=== PATIENT | female | born 1950 | race Caucasian/White ===

== ENCOUNTER 2019-03-19 00:50 | Inpatient (IN) | payer MEDICARE, OTHER ==
[2019-03-19] MEDS ORDERED: SODIUM CHLORIDE 0.9% 500 ML 500 ML IV ONE (01:02)
--- NOTE | 2019-03-19 01:05 | ED ---
General Adult HPI - General Source: patient, family, RN notes reviewed, old records reviewed Mode of arrival: EMS Limitations: no limitations <Tigre Juan - Last Filed: 03/19/19 03:30> <Landen Dickens - Last Filed: 03/20/19 08:40> - General Chief complaint: Fall Stated complaint: Fall-lt hip injury Time Seen by Provider: 03/19/19 00:57 - History of Present Illness Initial comments: 68-year-old female patient with past be on home oxygen presents to ED for chief complaint of mechanical fall. Patient was reportedly preparing a pizza in the oven. Patient reports that she removed the pizza and put on a table, when she turned a car that she suffered a slip and fall landing on her left hip. Patient complains of left hip pain. Patient is a shortened left hip. Denies new trauma to head or neck. Denies any use of blood thinners. Denies any other complaints at this time. Systemic: Pt denies fatigue, fever/chills, rash. Pt denies weakness, night sweats, weight loss. Neuro: Pt denies headache, visual disturbances, syncope or pre-syncope. HEENT: Pt denies ocular discharge or irritation, otalgia, rhinorrhea, pharyngitis or notable lymphadenopathy. Cardiopulmonary: Pt denies chest pain, SOB, heart palpitations, dyspnea on exertion. Abdominal/GI: Pt denies abdominal pain, n/v/d. : Pt denies dysuria, burning w/ urination, frequency/urgency. Denies new onset urinary or bowel incontinence. MSK: Pt denies myalgia, loss of strength or function in extremities. Neuro: Pt denies new onset weakness, paresthesias. (Tigre Juan) - Related Data Home Medications Medication Instructions Recorded Confirmed Fluticasone/Vilanterol [Breo 1 puff INHALATION DAILY 03/19/19 03/19/19 Ellipta 100-25 Mcg Inhaler] Levothyroxine Sodium [Synthroid] 50 mcg PO DAILY 03/19/19 03/19/19 Losartan Potassium 100 mg PO DAILY 03/19/19 03/19/19 Meloxicam [Mobic] 7.5 mg PO DAILY 03/19/19 03/19/19 Simvastatin [Zocor] 20 mg PO DAILY 03/19/19 03/19/19 Venlafaxine HCl ER [Effexor Xr] 150 mg PO DAILY 03/19/19 03/19/19 buPROPion SR [Wellbutrin Sr] 150 mg PO BID 03/19/19 03/19/19 Allergies Allergy/AdvReac Type Severity Reaction Status Date / Time Sulfa (Sulfonamide Allergy Nausea & Verified 03/19/19 08:39 Antibiotics) Vomiting cephalexin [From Keflex] AdvReac HEADACHE Verified 03/19/19 09:06 Review of Systems ROS Other: All systems not noted in ROS Statement are negative. <Tigre Juan - Last Filed: 03/19/19 03:30> ROS Other: All systems not noted in ROS Statement are negative. <ManinderLanden - Last Filed: 03/20/19 08:40> ROS Statement: Those systems with pertinent positive or pertinent negative responses have been documented in the HPI. Past Medical History Past Medical History: COPD, Hyperlipidemia, Hypertension Additional Past Medical History / Comment(s): O2 dependent History of Any Multi-Drug Resistant Organisms: None Reported Past Surgical History: No Surgical Hx Reported Past Psychological History: Depression Smoking Status: Current every day smoker Past Alcohol Use History: None Reported Past Drug Use History: None Reported <Tigre Juan - Last Filed: 03/19/19 03:30> - Past Family History Father Family Medical History: No Reported History Mother Family Medical History: Cancer Additional Family Medical History / Comment(s): Colon cancer <ManinderLanden - Last Filed: 03/20/19 08:40> General Exam Limitations: no limitations <Tigre Juan - Last Filed: 03/19/19 03:30> - General Exam Comments Initial Comments: Constitutional: NAD, AOX3, Pt has pleasant affect. HEENT: NC/AT, trachea midline, neck supple, no lymphadenopathy. Posterior pharyn x non erythematous, without exudates. External ears appear normal, without discharge. Mucous membranes moist. Eyes PERRLA, EOM intact. There is no scleral icterus. No pallor noted. Cardiopulmonary: RRR, no murmurs, rubs or gallops, no JVD noted. Lungs CTAB in anterior and posterior weeks. No peripheral edema. Abdominal exam: Abdomen soft and non-distended. Abdomen non-tender to palpation in all 4 quadrants. Bowel sounds active in LLQ. No hepatosplenomegaly. No ecchymosis Neuro: CN II-XII grossly intact. No nuchal rigidity. No raccon eyes, no alvarez sign, no hemotympanum. No cervical spinal tenderness. MSK: Left leg shortened, mildly externally rotated. Neurovascularly intact. Mildly tender to lateral hip region. No posterior calf tenderness bilaterally, homans sign negative bilaterally. Posterior tibialis and radial pulse +2 bilaterally. Sensation intact in upper and lower extremities. Full active ROM in upper and lower extremities, 5/5 stregnth. (Tigre Juan) Course Vital Signs 03/19/19 03/19/19 03/19/19 00:52 02:25 03:27 Pulse Rate 96 104 H 108 H Respiratory 16 18 16 Rate Blood Pressure 182/97 171/107 150/100 O2 Sat by Pulse 97 97 96 Oximetry Medical Decision Making - Lab Data Result diagrams: 03/19/19 01:15 03/19/19 01:15 - EKG Data -: EKG Interpreted by Me (and Dr. Henderson) <Tigre Juan - Last Filed: 03/19/19 03:30> - Lab Data Result diagrams: 03/19/19 01:15 03/19/19 01:15 <Landen Dickens - Last Filed: 03/20/19 08:40> - Medical Decision Making 68-year-old female patient with past be on home oxygen presents to ED for chief complaint of mechanical fall. Patient was reportedly preparing a pizza in the oven. Patient reports that she removed the pizza and put on a table, when she turned a car that she suffered a slip and fall landing on her left hip. Patient complains of left hip pain. Patient is a shortened left hip. Denies new trauma to head or neck. Denies any use of blood thinners. Denies any other complaints at this time. Patient also displayed mild hypertension likely secondary to pain. Physical exam displayed left leg to be shortened mildly externally rotated. Neurovascularly intact. Chest x-ray is negative. Plain film of left hip and AP pelvis with acute impacted subcapital fracture left femur. Patient be admitted for hip fracture. Dr. Messer accepting physician case is discussed with GAEL Garcia. Patient also be admitted for consultation with Dr. Maki for medical clearance. Patient has a COPD patient on home oxygen. Case discussed and pt seen by Dr. Henderson. (Tigre Juan) I saw this patient in conjunction with the physician purchasing assistant. I performed independent history and physical exam. Agree with case management. (Joey Dickens) - Lab Data Lab Results 03/19/19 03/19/19 Range/Units 01:15 01:15 WBC 14.8 H (3.8-10.6) k/uL RBC 3.98 (3.80-5.40) m/uL Hgb 12.2 (11.4-16.0) gm/dL Hct 36.7 (34.0-46.0) % MCV 92.2 (80.0-100.0) fL MCH 30.7 (25.0-35.0) pg MCHC 33.3 (31.0-37.0) g/dL RDW 12.8 (11.5-15.5) % Plt Count 215 (150-450) k/uL Neutrophils % 87 % Lymphocytes % 8 % Monocytes % 3 % Eosinophils % 1 % Basophils % 0 % Neutrophils # 13.0 H (1.3-7.7) k/uL Lymphocytes # 1.2 (1.0-4.8) k/uL Monocytes # 0.4 (0-1.0) k/uL Eosinophils # 0.1 (0-0.7) k/uL Basophils # 0.0 (0-0.2) k/uL Sodium 138 (137-145) mmol/L Potassium 3.9 (3.5-5.1) mmol/L Chloride 107 (98-107) mmol/L Carbon Dioxide 26 (22-30) mmol/L Anion Gap 5 mmol/L BUN 19 H (7-17) mg/dL Creatinine 0.83 (0.52-1.04) mg/dL Est GFR (CKD-EPI)AfAm 84 (>60 ml/min/1.73 sqM) Est GFR (CKD-EPI)NonAf 73 (>60 ml/min/1.73 sqM) Glucose 99 (74-99) mg/dL Calcium 7.9 L (8.4-10.2) mg/dL Total Bilirubin 0.3 (0.2-1.3) mg/dL AST 25 (14-36) U/L ALT 18 (4-34) U/L Alkaline Phosphatase 100 (38-126) U/L Total Protein 6.2 L (6.3-8.2) g/dL Albumin 3.6 (3.5-5.0) g/dL - EKG Data EKG Comments: Ventricular rate 99, painful 164, QRS 74, QT/QTC 344/441. NSR rhythm, normal EKG . (Tigre Juan) Disposition Is patient prescribed a controlled substance at d/c from ED?: No <Tigre Juan - Last Filed: 03/19/19 03:30> <Landen Dickens - Last Filed: 03/20/19 08:40> Clinical Impression: Fracture of left hip Disposition: ADMITTED IP TO THIS HOSP Condition: Serious
[2019-03-19] MEDS ORDERED: MORPHINE SULFATE 4 MG/ML SYRINGE IV STA (01:18)
[2019-03-19 01:22] LABS: Basophils % (A) 0 %; Eosinophils # (A) 0.1 k/uL (0-0.7); Eosinophils % (A) 1 %; HCT 36.7 % (34.0-46.0); HGB 12.2 gm/dL (11.4-16.0); Lymphocytes # (A) 1.2 k/uL (1.0-4.8); Lymphocytes % (A) 8 %; MCH 30.7 pg (25.0-35.0); MCHC 33.3 g/dL (31.0-37.0); MCV 92.2 fL (80.0-100.0); Monocytes # (A) 0.4 k/uL (0-1.0); Monocytes % (A) 3 %; Neutrophils % (A) 87 %; Platelet Count 215 k/uL (150-450); RBC 3.98 m/uL (3.80-5.40); RDW 12.8 % (11.5-15.5); WBC 14.8 k/uL (3.8-10.6)
[2019-03-19 01:38] LABS: Albumin 3.6 g/dL (3.5-5.0); Calcium 7.9 mg/dL (8.4-10.2); Potassium 3.9 mmol/L (3.5-5.1); Total Bilirubin 0.3 mg/dL (0.2-1.3); Total Protein 6.2 g/dL (6.3-8.2)
--- NOTE | 2019-03-19 01:39 | XR ---
EXAMINATION TYPE: XR Hip LT and AP Pelvis DATE OF EXAM: 03/19/2019 COMPARISON: NONE HISTORY: Fall. Left hip pain TECHNIQUE: Single view FINDINGS: Pelvic ring is intact. There is impacted subcapital fracture left femur. There is displacem ent 2.5 cm. There is no dislocation. IMPRESSION: Acute impacted subcapital fracture left femur.
--- NOTE | 2019-03-19 01:41 | XR ---
EXAMINATION TYPE: XR chest 1V DATE OF EXAM: 03/19/2019 COMPARISON: NONE HISTORY: Left hip pain TECHNIQUE: Single view FINDINGS: There is no heart failure nor confluent pneumonic infiltrate. Costophrenic angles are clear . Thoracic aorta is atheromatous. IMPRESSION: No active cardiopulmonary disease. Normal heart.
[2019-03-19] MEDS ORDERED: HYDROmorphone 0.5 MG/0.5 ML SYRINGE IVP STA (02:19)
[2019-03-19] MEDS ORDERED: CALCIUM GLUCONATE 1 GM in SODIUM CHLORIDE 0.9% 100 ML IVPB ONE ×2 (03:02→03:04)
[2019-03-19] MEDS ORDERED: NALOXONE 0.4 MG/ML 1 ML VIAL IV PRN (03:33)
[2019-03-19] MEDS: SODIUM CHLORIDE 0.9% 1,000 ML IV SCH ×3 (04:58→23:09)
[2019-03-19] MEDS: HYDROmorphone 0.5 MG/0.5 ML SYRINGE IVP PRN ×5 (05:01→23:05)
[2019-03-19] MEDS ORDERED: IPRATROPIUM-ALBUTEROL 3 ML NEB INHALATION PRN (05:55)
[2019-03-19] MEDS ORDERED: cloNIDine HCL 0.2 MG TAB PO PRN (05:57)
--- NOTE | 2019-03-19 06:18 | P.CONS ---
History of Present Illness - Reason for Consult Consult date: 03/19/19 preop clearance and medical management Requesting physician: Tigre Messer - Chief Complaint fall and left hip pain - History of Present Illness 68 year old female with chronic hypoxic respiratory failure secondary to COPD, hypertension patient comes in after sustaining unwitnessed fall at home, its reportedly that she was making pizza, she would use her wheelchair for support while walking and somehow she slipped and fell, could not get up, crawled her way to the living area which took her an hour to do so, pulled her phone and called for help. upon EMS arrival she vomited when she was moved to the ambulance. patient reports severe pain in her left hip, sharp pain, 10/10 in severity non radiating , denies any associated numbness in her LLE. no cuts or brusing , no bleeding. patient denies taking any blood thinners or aspirin. she reports no head injury, no dizziness, no focal neuro deficits, denies irregular heart beat , denies lightheadedness, denies any shortness of breath or chest pain. family reports that she has been falling alot recently over the past year, and this has been getting worse. family tried to make the house safe by removing uneven edges, rugs and loose carpet. however patient was still falling, no report of loss of consciousness. however, patient has been having progressive worsening in her exertional dyspnea, now she would get short of breath with minimal activity like walking from bedroom to the bathroom. no history of c ardiac workup in the past. patient known to have COPD on home oxygen but she does not use her inhalers, she continues to smoke . in the ED, imaging confirmed acute impacted subcapital fracture of left femur. calcium was found to be slightly low and was replaced in the ED. EKG showed normal sinus rhythm . patient admitted to surgery with medicine on consult for medical management and preop clearance . patient on wellbutrin to help her with smoking cessation family reports that her PCP has decreased her Losartan dose to 50 mg (from 100) due to frequent falling, suspecting possible hypotension Review of Systems Pertinent positives as noted in HPI. All other systems were reviewed and are negative Past Medical History Past Medical History: COPD, Hyperlipidemia, Hypertension Additional Past Medical History / Comment(s): O2 dependent History of Any Multi-Drug Resistant Organisms: None Reported Past Surgical History: No Surgical Hx Reported Additional Past Surgical History / Comment(s): Ectopic . Leg operation;no metal implants Past Anesthesia/Blood Transfusion Reactions: No Reported Reaction Additional Past Anesthesia/Blood Transfusion Reaction / Comm: Blood transfusion with ectopic Past Psychological History: Depression Smoking Status: Current every day smoker Past Alcohol Use History: None Reported Past Drug Use History: None Reported - Past Family History Father Family Medical History: No Reported History Mother Family Medical History: Cancer Additional Family Medical History / Comment(s): Colon cancer Medications and Allergies Home Medications Medication Instructions Recorded Confirmed Type Levothyroxine Sodium [Synthroid] 50 mcg PO DAILY 03/19/19 03/19/19 History Losartan Potassium 100 mg PO DAILY 03/19/19 03/19/19 History Meloxicam [Mobic] 7.5 mg PO DAILY 03/19/19 03/19/19 History Simvastatin [Zocor] 20 mg PO HS 03/19/19 03/19/19 History Venlafaxine HCl ER [Effexor Xr] 150 mg PO DAILY 03/19/19 03/19/19 History buPROPion SR [Wellbutrin Sr] 150 mg PO BID 03/19/19 03/19/19 History Allergies Allergy/AdvReac Type Severity Reaction Status Date / Time Sulfa (Sulfonamide Allergy Nausea & Verified 03/19/19 01:00 Antibiotics) Vomiting Physical Exam Vitals: Vital Signs Temp Pulse Pulse Resp BP BP Pulse Ox 03/19/19 04:32 98.0 F 106 H 18 164/104 95 03/19/19 04:15 109 H 16 151/102 96 03/19/19 03:27 108 H 16 150/100 96 03/19/19 02:25 104 H 18 171/107 97 03/19/19 00:52 96 16 182/97 97 Intake and Output 03/18/19 03/18/19 03/19/19 14:59 22:59 06:59 Output Total 350 Balance -350 Output: Urine 350 Other: Weight 60.5 kg Constitutional: No acute distress, conversant, pleasant, looks older than stated age Eyes: Anicteric sclerae, moist conjunctiva, Pupils equal round reactive to light ENMT: NC/AT Oropharynx clear, no erythema, or exudates Neck: Supple, FROM, no masses, or JVD No carotid bruits No thyromegaly Lungs: good breath sounds throughout, no wheezing Clear to percussion Normal respiratory effort, no accessory muscle use Cardiovascular: Heart regular in rate and rhythm, significant systolic murmur over aortic area radiating to the neck, no gallops, or rubs No peripheral edema Abdominal: Soft Nontender, no guarding, rebound or rigidity Abdomen moving with respiration Normoactive bowel sounds No hepatomegaly, No splenomegaly No palpable mass No abdominal wall hernia noted Skin: Normal temperature, tone, texture, turgor No induration No subcutaneous nodules No rash, lesions No ulcers Extremities: noticeable shortening of the left limb with external rotation , No digital cyanosis No clubbing Pedal pulses intact and symmetrical Radial pulses intact and symmetrical No calf tenderness Psychiatric: Alert and oriented to person, place and time Appropriate affect fair judgment Neuro Muscles Strength 5/5 in bialteral upper extremities and right lower extremtiy except for limited exam over left lower extremity due to pain Sensation to light touch grossly present throughout Cranial nerves II-XII grossly intact No focal sensory deficits Lymphatics: no palpable cervical or supraclavicular , or inguinal lymph nodes Results CBC & Chem 7: 03/19/19 01:15 03/19/19 01:15 Labs: Abnormal Lab Results - Last 24 Hours (Table) 03/19/19 03/19/19 Range/Units 01:15 01:15 WBC 14.8 H (3.8-10.6) k/uL Neutrophils # 13.0 H (1.3-7.7) k/uL BUN 19 H (7-17) mg/dL Calcium 7.9 L (8.4-10.2) mg/dL Total Protein 6.2 L (6.3-8.2) g/dL Assessment and Plan Assessment: patient is 68 year old Female, presented with left hip fracture after sustaining a fall unwitnessed. Patient denies any recent history or symptoms of congestive heart failure, mycardial infarction, syncope, arrhythmia, palpitation. Patient does report exertional dyspnea on mild exertion but denies any associated chest pain. Patient denies any past medical history of stroke, CAD, CHF, CKD, or DM. Patient functional status is very limited due to dyspnea with mild exertion , she has COPD and chronic hypoxic respiratory failure. patient unable to do simple house chores or climb stairs, she would get short of breath with walking from her room to the bathroom. Patient labs reviewed overall unremarkable except for slight leukocytosis and mild hypocalcemia which was replaced in the ED. EKG reviewed and showed NSR. Patient is planned to have orthopedic surgery to fix left hip fracture. This is of moderate risk, however, patient report of exertional dyspnea and frequent falls (with no reason) over the past year and found to have significant aortic murmur on exam with no history of any cardiac workup would require to obtain cardiac echocardiogram to evaluate her aortic valve and rule out severe stenosis This has been explained to the patient and her family, all questions answered, patient verbalized understanding and agreement. Plan: acute impacted subcapital fracture of left femur secondary to falling unwitnessed. pain control neurovascular assessment of left lower extremity q2hr DVT PPX per orthopedic recommendations significant murmur over aortic area, with exertional dyspnea and frequent falling rule out severe aortic stenosis obtain echocardiogram Prior to surgery consider cardiology consult if patient has significant valvular disorder chronic hypoxic respiratory failure secondary to COPD currently at baseline and stable continue with supplemental oxygen at 3 LPM patient not compliant with inhalers duoneb PRN duoneb QID hypertension , with elevated blood pressure possibly due to pain hold losartan in anticipation of surgery PRN clonidin for SBP >180 PCP has recently adjusted her losartan dose from 100 to 50 mg daily secondary to frequent falling suspecting hypotension episodes hypocalcemia , mild replaced in the ED depression on effexor hypothyroidism resume synthroid tobacco smoking on welbuterin counseled to quit smoking nicotine replacement therapy offered DVT PPX heparin sc tid CODE STATUS:full code Anticipated length of stay > than [address]: pending clinical course A total of 60 minutes was spent on the care of this complex patient more than 50% of the time was spent in counseling and care coordination. Thank you for allowing us to participate in the care of this patient. Do not hesitate to contact us with questions. Someone can be reached from the [facility] hospitalist group at all hours of the day on Perfect [employer] or at [phone].
[2019-03-19] MEDS: IPRATROPIUM-ALBUTEROL 3 ML NEB INHALATION SCH ×4 (09:00→19:58)
[2019-03-19] MEDS: HEPARIN SODIUM,PORCINE 5,000 UNIT/ML 1 ML VIAL SQ SCH ×3 (09:26→23:05)
[2019-03-19] MEDS: LEVOTHYROXINE 50 MCG TAB PO SCH (09:26)
--- NOTE | 2019-03-19 09:43 | P.HPOR ---
History of Present Illness H&P Date: 03/19/19 Chief Complaint: Left femoral neck fracture Patient is a 68-year-old female who presented to the hospital early this morning after falling at her home. Patient apparently was making a repeat set in her kitchen, she apparently lost her balance and fell directly on the left side. She was able to crawl to the phone, she states that took over an hour. She contacted EMS brought her directly to the hospital. Upon arrival to the hospital, imaging lab tests were done. X-rays demonstrated a left femoral neck fracture. I was contacted by the emergency room staff regarding this, I was able to review the images. Patient was admitted under orthopedic care with plan for surgical intervention. Internal medicine was placed on consult. After being seen by internal medicine, there was a noted aortic murmur. I proceeded with a cardiac consult. Both internal medicine and cardiology will be on for management and clearance for surgery. Patient was evaluated today at bedside, she is on the surgical floor. Her niece was present at bedside. She is resting comfortably at this time, no acute discomfort. She notes most discomfort in the left leg when she attempts to mov e. She denies any other orthopedic complaints at this time. Patient admits that she is falling a lot recently in the last few months. Patient has his history of severe COPD which she is treated for at this time. Review of Systems Constitutional: Reports as per HPI Past Medical History Past Medical History: COPD, Hyperlipidemia, Hypertension Additional Past Medical History / Comment(s): O2 dependent History of Any Multi-Drug Resistant Organisms: None Reported Past Surgical History: No Surgical Hx Reported Additional Past Surgical History / Comment(s): Ectopic . Leg operation;no metal implants Past Anesthesia/Blood Transfusion Reactions: No Reported Reaction Additional Past Anesthesia/Blood Transfusion Reaction / Comment(s): Blood transfusion with ectopic Past Psychological History: Depression Smoking Status: Current every day smoker Past Alcohol Use History: None Reported Past Drug Use History: None Reported - Past Family History Father Family Medical History: No Reported History Mother Family Medical History: Cancer Additional Family Medical History / Comment(s): Colon cancer Medications and Allergies Home Medications Medication Instructions Recorded Confirmed Type Fluticasone/Vilanterol [Breo 1 puff INHALATION DAILY 03/19/19 03/19/19 History Ellipta 100-25 Mcg Inhaler] Levothyroxine Sodium [Synthroid] 50 mcg PO DAILY 03/19/19 03/19/19 History Losartan Potassium 100 mg PO DAILY 03/19/19 03/19/19 History Meloxicam [Mobic] 7.5 mg PO DAILY 03/19/19 03/19/19 History Simvastatin [Zocor] 20 mg PO DAILY 03/19/19 03/19/19 History Venlafaxine HCl ER [Effexor Xr] 150 mg PO DAILY 03/19/19 03/19/19 History buPROPion SR [Wellbutrin Sr] 150 mg PO BID 03/19/19 03/19/19 History Allergies Allergy/AdvReac Type Severity Reaction Status Date / Time Sulfa (Sulfonamide Allergy Nausea & Verified 03/19/19 08:39 Antibiotics) Vomiting cephalexin [From Keflex] AdvReac HEADACHE Verified 03/19/19 09:06 Physical Examination Left lower extremity: No obvious open lesions or sores are present throughout the extremity, no significant areas of erythema or soft tissue swelling Shortening of the leg is noted compared to the right lower extremity No effusion present over the knee Tenderness with palpation surrounding the foot or ankle or knee Logroll maneuver the hip reproduces pain, she is unable to straight leg raise Soft, no tenderness with palpation Plantar flexion, dorsiflexion, EHL, FHL are intact. Sensation to light touch spelled extremities intact, dorsal pedis pulses 2+ Results - Labs Labs: Abnormal Lab Results - Last 24 Hours (Table) 03/19/19 03/19/19 Range/Units 01:15 01:15 WBC 14.8 H (3.8-10.6) k/uL Neutrophils # 13.0 H (1.3-7.7) k/uL BUN 19 H (7-17) mg/dL Calcium 7.9 L (8.4-10.2) mg/dL Total Protein 6.2 L (6.3-8.2) g/dL H & H 03/19/19 Range/Units 01:15 Hgb 12.2 (11.4-16.0) gm/dL Hct 36.7 (34.0-46.0) % Result Diagrams: 03/19/19 01:15 03/19/19 01:15 - Diagnostic results Hip x-ray: report reviewed, image reviewed Assessment and Plan Plan: Imaging: X-rays were reviewed of the pelvis and left hip. Images demonstrated an impacted displaced left femoral neck fracture. There is evidence of left hip osteoarthritis Assessment: 1. Displaced left femoral neck fracture 2. Left hip osteoarthritis 3. Status post fall from standing 4. COPD and other medical comorbidities Plan: I was able to discuss the case with my attending Dr. Butler, we would like to proceed with surgical intervention more specifically a direct anterior left total hip arthroplasty. Risks and benefits of the procedure were discussed the patient and family, this to include but not exclude infection, blood loss, neurovascular injury, development of blood clots, pain is stiffness, need for subsequent surgery. Patient is in good understanding and would like to proceed. Internal medicine and cardiology recommendations Nothing by mouth after midnight Pain control GI and DVT prophylaxis, heparin 5000 units every 8hr Plan for surgery 03/20/2019 Anticipate discharge to subacute rehab when stable Further recommendations to follow Time with Patient: Less than 30
--- NOTE | 2019-03-19 10:25 | P.CRDCN ---
History of Present Illness History of present illness: HISTORY OF PRESENTING ILLNESS This is a pleasant 68-year-old female past medical history significant for COPD, hypertension, dyslipidemia and chronic nicotine dependence. She love es prior history of coronary artery disease, diabetes mellitus or CVA. She does not follow with a barrel raiser for any reason. We have asked to see her in consultation secondary to preoperative evaluation. She states she was warming up a piece of pizza on her microwave when she lost her balance and fell. She denies feeling dizzy, lightheaded, chest pain, short of breath or palpitations. She denies loss of consciousness. X-ray reveals an acute impacted subcapital left femur fracture. She is scheduled to undergo orthopedic surgery tomorrow. She is seen and examined resting comfortably lying flat in bed in no acute distress. She denies symptoms of chest pain, dizziness, shortness of breath or palpitations. DIAGNOSTICS EKG reveals sinus mechanism heart rate of 99. Chest xray negative for an acute cardiopulmonary process. Laboratory reviewed, CBC 14.8, hemoglobin 12.2, platelets 215, sodium 138, potassium 3.9, creatinine 0.83. Current cardiac medications include losartan 100 mg daily and simvastatin 20 mg daily. REVIEW OF SYSTEMS At the time of my exam: CONSTITUTIONAL: Denies fever or chills. CARDIOVASCULAR: Denies chest pain, shortness of breath, orthopnea, PND or palpitations. RESPIRATORY: Denies cough. GASTROINTESTINAL: Denies abdominal pain, diarrhea, constipation, nausea or vomiting. MUSCULOSKELETAL: Complains of discomfort to the left hip and leg. NEUROLOGIC: Denies numbness, tingling or weakness. ENDOCRINE: Denies fatigue, weight change, polydipsia or polyurina. GENITOURINARY: Denies burning, hematuria or urgency with micturation. HEMATOLOGIC: Denies history of anemia or bleeding. PHYSICAL EXAMINATION Blood pressure 165/108 heart rate 113 afebrile and maintaining oxygen saturation on nasal cannula. CONSTITUTIONAL: No apparent distress. HEENT: Head is normocephalic. Pupils are equal, round. Sclerae anicteric. Mucous membranes of the mouth are moist. No JVD. No carotid bruit. CHEST EXAMINATION: Scattered rhonchi and expiratory wheeze. No rales. No chest wall tenderness is noted on palpation or with deep breathing. HEART EXAMINATION: Regular rate and rhythm. S1, S2 heard. Systolic ejection murmur at the left sternal border, no gallops or rub. ABDOMEN: Soft, nontender. Positive bowel sounds. EXTREMITIES: 2+ peripheral pulses, no lower extremity edema and no calf tenderness. NEUROLOGIC EXAMINATION: Patient is awake, alert and oriented x3. 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 Left impacted femur fracture Sinus tachycardia, likely from pain Hypertension Dyslipidemia COPD Chronic nicotine dependence PLAN Echocardiogram has been ordered and will be reviewed. Resume losartan at 100 mg daily for blood pressure control. May require second scheduled medication if blood pressure remains elevated after pain is controlled. Discontinue PRN anti-hypertensives. Clinically she is euvolemic and free of symptoms of angina. There are no acute contraindications to undergo surgery at this time. Recommend cautious fluid administration and optimal blood pressure control intraoperatively. Thank you kindly for this consultation. Nurse Practitioner note has been reviewed, I agree with a documented findings and plan of care. Patient was seen and examined. Past Medical History Past Medical History: COPD, Hyperlipidemia, Hypertension Additional Past Medical History / Comment(s): O2 dependent History of Any Multi-Drug Resistant Organisms: None Reported Past Surgical History: No Surgical Hx Reported Additional Past Surgical History / Comment(s): Ectopic . Leg operation;no metal implants Past Anesthesia/Blood Transfusion Reactions: No Reported Reaction Additional Past Anesthesia/Blood Transfusion Reaction / Comment(s): Blood transfusion with ectopic Past Psychological History: Depression Smoking Status: Current every day smoker Past Alcohol Use History: None Reported Past Drug Use History: None Reported - Past Family History Father Family Medical History: No Reported History Mother Family Medical History: Cancer Additional Family Medical History / Comment(s): Colon cancer Medications and Allergies Home Medications Medication Instructions Recorded Confirmed Type Fluticasone/Vilanterol [Breo 1 puff INHALATION DAILY 03/19/19 03/19/19 History Ellipta 100-25 Mcg Inhaler] Levothyroxine Sodium [Synthroid] 50 mcg PO DAILY 03/19/19 03/19/19 History Losartan Potassium 100 mg PO DAILY 03/19/19 03/19/19 History Meloxicam [Mobic] 7.5 mg PO DAILY 03/19/19 03/19/19 History Simvastatin [Zocor] 20 mg PO DAILY 03/19/19 03/19/19 History Venlafaxine HCl ER [Effexor Xr] 150 mg PO DAILY 03/19/19 03/19/19 History buPROPion SR [Wellbutrin Sr] 150 mg PO BID 03/19/19 03/19/19 History Allergies Allergy/AdvReac Type Severity Reaction Status Date / Time Sulfa (Sulfonamide Allergy Nausea & Verified 03/19/19 08:39 Antibiotics) Vomiting cephalexin [From Keflex] AdvReac HEADACHE Verified 03/19/19 09:06 Physical Exam Vitals: Vital Signs Temp Pulse Pulse Resp BP BP Pulse Ox 03/19/19 07:00 96.7 F L 113 H 16 165/108 99 03/19/19 05:54 20 162/102 03/19/19 04:32 98.0 F 106 H 18 164/104 95 03/19/19 04:15 109 H 16 151/102 96 03/19/19 03:27 108 H 16 150/100 96 03/19/19 02:25 104 H 18 171/107 97 03/19/19 00:52 96 16 182/97 97 Intake and Output 03/18/19 03/19/19 03/19/19 22:59 06:59 14:59 Intake Total 300 Output Total 350 Balance -50 Intake: Intake, IV Titration 300 Amount Calcium Gluconate 1 gm In 100 Sodium Chloride 0.9% 100 ml @ 100 mls/hr IVPB ONCE ONE Rx#:[id number] Sodium Chloride 0.9% 1, 200 000 ml @ 100 mls/hr IV . Q10H [facility] Rx#:[id number] Output: Urine 350 Other: Voiding Method Indwelling Catheter Weight 60.5 kg Results 03/19/19 01:15 03/19/19 01:15 Cardiac Enzymes 03/19/19 Range/Units 01:15 AST 25 (14-36) U/L CBC 03/19/19 Range/Units 01:15 WBC 14.8 H (3.8-10.6) k/uL RBC 3.98 (3.80-5.40) m/uL Hgb 12.2 (11.4-16.0) gm/dL Hct 36.7 (34.0-46.0) % Plt Count 215 (150-450) k/uL Comprehensive Metabolic Panel 03/19/19 Range/Units 01:15 Sodium 138 (137-145) mmol/L Potassium 3.9 (3.5-5.1) mmol/L Chloride 107 (98-107) mmol/L Carbon Dioxide 26 (22-30) mmol/L BUN 19 H (7-17) mg/dL Creatinine 0.83 (0.52-1.04) mg/dL Glucose 99 (74-99) mg/dL Calcium 7.9 L (8.4-10.2) mg/dL AST 25 (14-36) U/L ALT 18 (4-34) U/L Alkaline Phosphatase 100 (38-126) U/L Total Protein 6.2 L (6.3-8.2) g/dL Albumin 3.6 (3.5-5.0) g/dL Current Medications Generic Name Dose Route Start Last Admin Trade Name Freq PRN Reason Stop Dose Admin Albuterol/Ipratropium 3 ml 03/19/19 08:00 03/19/19 09:00 Duoneb 0.5 Mg-3 Mg/3 Ml Soln INHALATION Not Given RT-QID TOMY Albuterol/Ipratropium 3 ml 03/19/19 05:55 Duoneb 0.5 Mg-3 Mg/3 Ml Soln INHALATION RT-Q4H PRN Bronchospasm Atorvastatin Calcium 10 mg 03/19/19 21:00 Lipitor PO HS TOMY Clonidine 0.2 mg 03/19/19 05:57 Catapres PO TID PRN Blood Pressure - High Heparin Sodium (Porcine) 5,000 unit 03/19/19 08:00 03/19/19 09:26 Heparin SQ 5,000 unit Q8HR TOMY Administration Hydromorphone HCl 0.5 mg 03/19/19 03:33 03/19/19 05:01 Dilaudid IVP 0.5 mg Q3HR PRN Administration Moderate Pain Sodium Chloride 1,000 mls @ 100 mls/hr 03/19/19 03:45 03/19/19 04:58 Saline 0.9% IV 100 mls/hr .Q10H TOMY Administration Levothyroxine Sodium 50 mcg 03/19/19 06:30 03/19/19 09:26 Synthroid PO 50 mcg DAILY@0630 TOMY Administration Naloxone HCl 0.2 mg 03/19/19 03:33 Narcan IV Q2M PRN Opioid Reversal Intake and Output 03/18/19 03/19/19 03/19/19 22:59 06:59 14:59 Intake Total 300 Output Total 350 Balance -50 Intake: Intake, IV Titration 300 Amount Calcium Gluconate 1 gm In 100 Sodium Chloride 0.9% 100 ml @ 100 mls/hr IVPB ONCE ONE Rx#:[id number] Sodium Chloride 0.9% 1, 200 000 ml @ 100 mls/hr IV . Q10H [facility] Rx#:[id number] Output: Urine 350 Other: Voiding Method Indwelling Catheter Weight 60.5 kg 03/19/19 01:15 03/19/19 01:15
--- NOTE | 2019-03-19 10:31 | ECHOF ---
Referral Reason:aortic murmur ?stenosis, need clearance for surger MEASUREMENTS -------- HEIGHT: 167.6 cm WEIGHT: 60.3 kg BP: 162/102 RVIDd: 2.5 cm (< 3.3) IVSd: 1.0 cm (0.6 - 1.1) LVIDd: 3.6 cm (3.9 - 5.3) LVPWd: 1.0 cm (0.6 - 1.1) IVSs: 1.6 cm LVIDs: 2.4 cm LVPWs: 1.3 cm LA Diam: 2.2 cm (2.7 - 3.8) LAESV Index (A-L): 18.40 ml/m Ao Diam: 2.7 cm (2.0 - 3.7) AV Cusp: 1.1 cm (1.5 - 2.6) MV EXCURSION: 17.297 mm (> 18.000) MV EF SLOPE: 185 mm/s (70 - 150) EPSS: 0.5 cm AV maxP.76 mmHg AV maxP.76 mmHg AV meanP.47 mmHg FINDINGS -------- Resting tachycardia (HR>100bpm). This was a technically adequate study. The left ventricular size is normal. Left ventricular wall thickness is normal. Overall left vent ricular systolic function is normal with, an EF between 60 - 65 %. The right ventricle is normal in size. Normal LA size by volume 22+/-6 ml/m2. The right atrium is normal in size. Interatrial and interventricular septum intact. There is mild aortic valve sclerosis. There is mild aortic stenosis present. Peak/mean gradient a cross the Aortic Valve is 17.76mmHg / 9.47mmHg. The mitral valve leaflets are mildly thickened. Mild mitral annular calcification present. Mild-t o-moderate mitral regurgitation is present. Mild tricuspid regurgitation present. Right ventricular systolic pressure is normal at < 35 mmHg. The pulmonic valve was not well visualized. The aortic root size is normal. Normal inferior vena cava with normal inspiratory collapse consistent with estimated right atrial pre ssure of 5 mmHg. There is no pericardial effusion. CONCLUSIONS -------- 1. Resting tachycardia (HR>100bpm). 2. This was a technically adequate study. 3. The left ventricular size is normal. 4. Left ventricular wall thickness is normal. 5. Overall left ventricular systolic function is normal with, an EF between 60 - 65 %. 6. The right ventricle is normal in size. 7. Normal LA size by volume 22+/-6 ml/m2. 8. The right atrium is normal in size. 9. Interatrial and interventricular septum intact. 10. There is mild aortic valve sclerosis. 11. There is mild aortic stenosis present. 12. Peak/mean gradient across the Aortic Valve is 17.76mmHg / 9.47mmHg. 13. The mitral valve leaflets are mildly thickened. 14. Mild mitral annular calcification present. 15. Kegy-[id number] mitral regurgitation is present. 16. Mild tricuspid regurgitation present. 17. Right ventricular systolic pressure is normal at < 35 mmHg. 18. The pulmonic valve was not well visualized. 19. The aortic root size is normal. 20. Normal inferior vena cava with normal inspiratory collapse consistent with estimated right atrial pressure of 5 mmHg. 21. There is no pericardial effusion. INFORMATION TECHNOLOGY AUDITOR: STEPHANIE Yanez
--- NOTE | 2019-03-19 12:09 | P.PN ---
Progress Note - Text Progress Note Date: 03/19/19 Patient was seen. Patient reports left hip pain. Pain is 10 out of 10 only with movement. She denies any chest pain, shortness breath or palpitations. No dizziness. Patient is in no acute distress. Acute impacted subcapital fracture of the left femur secondary to fall Murmur Leukocytosis Elevated BUN Chronic hypoxic respiratory failure due to COPD Hypertension Dyslipidemia Patient diagnosed with impacted subcapital fracture of the left femur after fall. Echocardiogram was done which showed EF 60-65% with normal wall motion. There is also mild aortic stenosis, mild to moderate mitral regurgitation and mild tricuspid regurgitation. Losartan has been increased for better blood pres sure control. She is on Lipitor for dyslipidemia and Synthroid for hypothyroidism. Her leukocytosis is likely reactive from the fall. LVEDP was likely due to dehydration for which IVF is being given. Cardiology has evaluated the patient cleared the patient for surgery. She has been placed nothing by mouth after midnight for possible surgery tomorrow.
[2019-03-19 13:02] VITALS: BMI 21.5
[2019-03-19] MEDS: LOSARTAN 50 MG TAB PO SCH (13:53)
[2019-03-19 20:23] LABS: Glucose,Whole Blood 131 mg/dL (75-99)
[2019-03-19] MEDS: HYDROcodone/APAP 5-325MG 1 EACH TAB PO PRN (20:25)
[2019-03-19] MEDS: ATORVASTATIN 10 MG TAB PO SCH (20:25)
[2019-03-19] MEDS ORDERED: LIDOCAINE 1% 20 ML VIAL (10MG/ML) FOR IV START INTRADERMA PRN (21:33)
[2019-03-19] MEDS ORDERED: fentaNYL (PF) 50 MCG/ML 2 ML AMP IV PRN (21:33)
[2019-03-19] MEDS: LACTATED RINGERS 1,000 ML IV SCH (23:04)
[2019-03-19] MEDS: ONDANSETRON 4 MG/2 ML VIAL IVP ONE (23:05)
[2019-03-19] MEDS: DEXAMETHASONE SOD PHOSPHATE 10 MG/ML 1 ML VIAL IV ONE (23:12)
[2019-03-20] MEDS: HYDROcodone/APAP 5-325MG 1 EACH TAB PO PRN (02:52)
[2019-03-20] MEDS: HYDROmorphone 0.5 MG/0.5 ML SYRINGE IVP PRN ×3 (02:53→12:10)
[2019-03-20] MEDS: LEVOTHYROXINE 50 MCG TAB PO SCH (05:06)
[2019-03-20] MEDS: SODIUM CHLORIDE 0.9% 1,000 ML IV SCH ×2 (08:43→20:58)
[2019-03-20] MEDS: HEPARIN SODIUM,PORCINE 5,000 UNIT/ML 1 ML VIAL SQ SCH (08:51)
[2019-03-20 08:54] LABS: HCT 35.1 % (34.0-46.0); HGB 11.2 gm/dL (11.4-16.0); MCHC 31.9 g/dL (31.0-37.0); MCV 93.8 fL (80.0-100.0); Mean Platelet Volume 7.9; Platelet Count 175 k/uL (150-450); RBC 3.74 m/uL (3.80-5.40); WBC 11.3 k/uL (3.8-10.6)
[2019-03-20 09:16] LABS: Calcium 8.4 mg/dL (8.4-10.2); Potassium 4.7 mmol/L (3.5-5.1)
[2019-03-20] MEDS: LOSARTAN 50 MG TAB PO SCH (09:32)
[2019-03-20] MEDS: IPRATROPIUM-ALBUTEROL 3 ML NEB INHALATION SCH ×4 (09:50→20:37)
--- NOTE | 2019-03-20 12:20 | P.PN ---
Subjective Progress Note Date: 03/20/19 Principal diagnosis: Left hip pain Patient was seen and examined. No acute events overnight. Patient reports well-controlled pain with current medication. Patient states that she is not moving she is in no pain. Daughter is concerned about patient undergoing anesthesia given that she is on 3 L home O2. Patient denies any chest pain, shortness of breath or palpitations. No nausea or vomiting. No fever or chills. Objective - Vital Signs Vital signs: Vital Signs Temp 98.2 F 03/20/19 07:47 Pulse 100 03/20/19 10:42 Resp 17 03/20/19 07:47 BP 137/73 03/20/19 07:47 Pulse Ox 92 L 03/20/19 10:28 Intake & Output 03/19/19 03/20/19 03/20/19 18:59 06:59 18:59 Intake Total 1100 Output Total 1425 Balance 1100 -1425 Weight 60.5 kg Intake: Intake, IV Titration 800 Amount Sodium Chloride 0.9% 1, 800 000 ml @ 100 mls/hr IV . Q10H [facility] Rx#:[id number] Oral 300 Output: Urine 1425 Other: Voiding Method Indwelling Catheter Indwelling Catheter Indwelling Catheter # Voids 2 - Exam General: [non toxic], [no distress], [appears at stated age] Derm: [warm], [dry] Head: [atraumatic], [normocephalic], [symmetric] Eyes: [EOMI], [no lid lag], [anicteric sclera] Mouth: [no lip lesion], [mucus membranes moist] Cardiovascular: [S1S2 reg], [holosystolic murmur], [positive DP pulse bilateral], Lungs: [Decreased breath sounds bilateral], [no rhonchi, no rales] , [no accessory muscle use] Abdominal: [soft], [ nontender to palpation], [no guarding], [no appreciable organomegaly] Ext: [no gross muscle atrophy], [no edema], [no contractures], [limited range of motion of the left hip due to discomfort tenderness to palpation over the lateral hip, no erythema or bruising] Neuro: [no focal neuro deficits] Psych: [Alert], [oriented], [appropriate affect] - Labs CBC & Chem 7: 03/20/19 08:30 03/20/19 08:30 Labs: Abnormal Lab Results - Last 24 Hours (Table) 03/19/19 03/20/19 03/20/19 Range/Units 20:12 08:30 08:30 WBC 11.3 H (3.8-10.6) k/uL RBC 3.74 L (3.80-5.40) m/uL Hgb 11.2 L (11.4-16.0) gm/dL Carbon Dioxide 31 H (22-30) mmol/L Glucose 140 H (74-99) mg/dL POC Glucose (mg/dL) 131 H (75-99) mg/dL Assessment and Plan Assessment: Acute impacted subcapital fracture of the left femur secondary to fall Murmur Leukocytosis Chronic hypoxic respiratory failure due to COPD on 3 L home O2 Hypertension Dyslipidemia Patient diagnosed with impacted subcapital fracture of the left femur after fall. Echocardiogram was done which showed EF 60-65% with normal wall motion. There is also mild aortic stenosis, mild to moderate mitral regurgitation and mild tricuspid regurgitation. Losartan has been increased for better blood pressure control, her BP is in acceptable range. She is on Lipitor for dyslipidemia and Synthroid for hypothyroidism. Her leukocytosis is likely r eactive from the fall, which is trending down today. Hemoglobin slightly decreased from 12.2-11.2. Cardiology has evaluated the patient cleared the patient for surgery. Plans for surgery today. Discussed with daughter, advised to discuss risks of anesthesia with anesthesiologist and orthopedic surgeon prior to surgery given that patient is on 3 L home O2. She is pending clinical improvement. Will likely need subacute rehab on discharge.
[2019-03-20] MEDS ORDERED: IV FLUID CONTINUATION 1,000 ML IV ONE (13:36)
[2019-03-20] MEDS: ONDANSETRON 4 MG/2 ML VIAL IVP ONE (13:49)
[2019-03-20] MEDS: DEXAMETHASONE SOD PHOSPHATE 10 MG/ML 1 ML VIAL IV ONE (13:49)
[2019-03-20] MEDS ORDERED: ROPIVACAINE 246.25 MG, EPINEPHrine 0.5 MG, KETOROLAC 30 MG, cloNIDine HCL/PF 80 MCG, WA... MISCELLANE ONE ×5 (14:17)
[2019-03-20] MEDS ORDERED: TRANEXAMIC ACID 1,000 MG in SODIUM CHLORIDE 0.9% 100 ML IVPB PRN (14:17)
[2019-03-20] MEDS ORDERED: PROPOFOL 10 MG/ML 20 ML VIAL IV ONE (14:41)
[2019-03-20] MEDS ORDERED: MIDAZOLAM 2 MG/2 ML VIAL ONE (14:41)
[2019-03-20] MEDS ORDERED: SODIUM CHLORIDE 0.9% 100 ML BAG ONE (14:41)
[2019-03-20] MEDS ORDERED: TRANEXAMIC ACID 1,000 MG/10 ML VIAL ONE (14:41)
[2019-03-20] MEDS ORDERED: LACTATED RINGERS 1,000 ML IV ONE (16:02)
[2019-03-20] MEDS ORDERED: HYDROmorphone 0.5 MG/0.5 ML SYRINGE IVP PRN ×2 (16:21)
[2019-03-20] MEDS ORDERED: ONDANSETRON 4 MG/2 ML VIAL IVP PRN (16:21)
[2019-03-20] MEDS ORDERED: HYDROcodone/APAP 5-325MG 1 EACH TAB PO PRN (16:21)
[2019-03-20] MEDS ORDERED: NALOXONE 0.4 MG/ML 1 ML VIAL IV PRN (16:21)
--- NOTE | 2019-03-20 16:21 | P.OP ---
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 Depuy Corail KA size 13 standard collar press-fit femoral stem 2. Depuy pinnacle 54 mm press-fit multi hole acetabular shell 3. Depuy pinnacle acetabular polyethylene liner neutral 36 mm ID 54 mm OD 4. Biolox delta ceramic femoral head +1.5 36 mm Anesthesia: local, spinal Surgeon: Danial Butler Functional Tester Typewriters #1: Luis Garcia Estimated Blood Loss (ml): 100 Pathology: other (Femoral head) Condition: stable Disposition: PACU Indications for Procedure: 68-year-old patient seen with a displaced left hip femoral neck fracture. She did have some concomitant acetabular osteoarthritis. I recommended direct anter ior left total hip arthroplasty. Patient was agreeable. Consent was obtained. Operative Findings: See description of procedure Description of Procedure: The patient was taken to the operative suite. Patient underwent a spinal anesthetic by the department of anesthesia. Patient was then transferred to the Mccrory table. Patient was given preoperative IV antibiotics and TXA. Both lower extremities were placed in standard leg spars. The hip was then prepped and draped in the normal sterile orthopedic fashion. A standard anterior incision w as made beginning 3 cm lateral and 1 cm distal to the ASIS extending 10 cm. Dissection was then carried down through the subcutaneous soft tissues down to the fascia overlying the tensor fascia annie. An incision was now made through the fascia. Careful dissection was taken down exposing the tensor fascia annie muscle. A Cobra retractor was now placed along the medial femoral neck and a second one along the lateral femoral neck. The venous circumflex vessels were now identified, cauterized and clipped. We identified the anterior hip capsule. An incision was made through the hip capsule along the lateral border. I performed a partial anterior capsulectomy. I immediately visualized the fractured femoral neck with complete displacement of the femoral head. The femoral head was now removed without difficulty. I used a sagittal saw to remove some residual femoral neck. The extremity was now rotated to 45 degrees of external rotation. It was locked in position. Residual labrum was now debrided out. We noted some osteoarthritis of the acetabulum. Serial reaming was performed of the acetabulum while Jose M MAYO assisted holding an anterior retractor for exposure. Once we reached the appropriate size and a trial was position and fit nicely. The appropriate size was now chosen opened and made available. It was introduced into the acetabulum without difficulty. The C-arm/fluoroscopy was now brought into the operative field. We made sure we had a true AP pelvic view. We now under direct C-arm/fluoroscopy introduced into the acetabular component with appropriate version and inclination. I held the cup in appropriate position well Jose M MAYO used a mallet to seat the acetabular component. I noted the component now to be well seated and stable. Acetabular cup introduce her was removed. The C-arm was pulled back. An appropriate liner was introduced and clicked into position. It was felt to be stable. At this point retractors were removed. The extremity was now placed into 120 external rotation with no traction. The leg was now dropped to the ground and adducted. Appropriate retractors were now positioned along the proximal femur. We also placed our femoral look into position. Additional capsular releasing was performed to gain access to the proximal femur. We now used a box osteotome. A canal finder was now utilized. Serial broaching was now performed with the assistance of Jose M MAYO tapping the broaches down with a mallet while held the broach in appropriate rotation and position. This was done until we reached the appropriate size with good overall rotational stability. Appropriate calcar planing was performed. A trial head/neck was placed into position. The hip was now reduced. C-arm was brought to the operative field. An AP pelvis was obtained to ascertain appropriate leg lengths. They seem to be adequately aligned. The trial components and well- positioned. The C-arm/fluoroscopy was pulled back. Retractors were repositioned and the hip was dislocated. The leg was again taken down to the ground and adducted. Appropriate retractors were repositioned as well as the femoral hook. All trial components were removed. The femoral implant was opened along with the femoral head. The femoral implant was introduced on the appropriate handle into our pre-broached area. I held the component position w rebecca AMYO used a mallet to seat the femoral component. The femoral component was now noted to be well seated and stable.. The femoral head was introduced with good positioning and fixation noted. Retractors were now removed. The hip was now reduced. There appeared be good positioning of the hip confirmed on intraoperative fluoroscopy. Spot films were obtained to document this. A second gram of TXA was given. The deep and superficial soft tissues were infiltrated with local analgesic. Bipolar cautery had been utilized intermittently through the procedure for hemostasis. The wound was irrigated copiously with pulse lavage mechanical irrigation. The fascia was repaired with Vicryl suture. The subcutaneous soft tissues were repaired in layers with Vicryl suture. The skin was approximated with pernio/Dermabond. Sterile dressings were applied. Patient was then awakened, transferred to a bed and taken to recovery in stable condition. Jose M MAYO assisted with the co mplex procedure.
[2019-03-20] MEDS: LACTATED RINGERS 1,000 ML IV SCH ×2 (18:39→20:58)
[2019-03-20] MEDS: SENNOSIDES-DOCUSATE SODIUM 1 EACH TAB PO SCH (20:04)
[2019-03-20] MEDS: ATORVASTATIN 10 MG TAB PO SCH (20:04)
[2019-03-21] MEDS: ENOXAPARIN 40 MG/0.4 ML SYRINGE SQ SCH (02:27)
[2019-03-21] MEDS: HYDROcodone/APAP 5-325MG 1 EACH TAB PO PRN ×3 (05:07→16:24)
[2019-03-21] MEDS: LEVOTHYROXINE 50 MCG TAB PO SCH (05:07)
[2019-03-21] MEDS: SODIUM CHLORIDE 0.9% 1,000 ML IV SCH ×2 (05:24→15:44)
[2019-03-21] MEDS: LACTATED RINGERS 1,000 ML IV SCH ×3 (06:06→21:01)
[2019-03-21 07:04] LABS: Basophils % (A) 0 %; Eosinophils % (A) 0 %; HCT 30.6 % (34.0-46.0); HGB 9.8 gm/dL (11.4-16.0); Lymphocytes # (A) 1.4 k/uL (1.0-4.8); Lymphocytes % (A) 10 %; MCH 29.6 pg (25.0-35.0); MCHC 31.9 g/dL (31.0-37.0); MCV 92.8 fL (80.0-100.0); Mean Platelet Volume 8.1; Monocytes % (A) 7 %; Neutrophils # (A) 11.2 k/uL (1.3-7.7); Neutrophils % (A) 81 %; Platelet Count 179 k/uL (150-450); RDW 13.1 % (11.5-15.5); WBC 13.9 k/uL (3.8-10.6)
[2019-03-21] MEDS: IPRATROPIUM-ALBUTEROL 3 ML NEB INHALATION SCH ×4 (07:33→20:57)
[2019-03-21] MEDS: LOSARTAN 50 MG TAB PO SCH (09:42)
[2019-03-21] MEDS: FAMOTIDINE 20 MG TAB PO SCH (09:42)
--- NOTE | 2019-03-21 10:29 | XR ---
Limited left hip HISTORY: Anterior hip replacement Single frontal view of the left hip from intraoperative C-arm documents the procedure
--- NOTE | 2019-03-21 10:32 | FL ---
Fluoroscopy HISTORY: Anterior hip replacement 11 seconds fluoroscopy time supplied to the referring clinician. 1 intraoperative C-arm images docum ent the procedure. See dictated report from orthopedic surgery.
--- NOTE | 2019-03-21 11:38 | P.PN ---
Subjective Progress Note Date: 03/21/19 Principal diagnosis: Left hip pain Patient was seen and examined. No acute events overnight. Patient reports well-controlled pain with current medication. Patient states that she is not moving she is in no pain. She underwent direct anterior left total hip arthroplasty yesterday. Patient denies any chest pain, shortness of breath or palpitations. No nausea or vomiting. No fever or chills. Patient has been urinating since her surgery. She has not had a bowel movement since surgery but is passing gas. Objective - Vital Signs Vital signs: Vital Signs Temp 98.2 F 03/21/19 07:00 Pulse 104 H 03/21/19 07:45 Resp 16 03/21/19 07:00 BP 177/80 03/21/19 07:00 Pulse Ox 94 L 03/21/19 07:00 Intake & Output 03/20/19 03/21/19 03/21/19 18:59 06:59 18:59 Intake Total 1250 Output Total 540 2600 Balance 710 -2600 Intake: IV 1250 Output: Urine 440 2600 Uretheral (Best) 240 500 Estimated Blood Loss 100 Other: Voiding Method Indwelling Catheter Indwelling Catheter - Exam General: [non toxic], [no distress], [appears at stated age] Derm: [warm], [dry] Head: [atraumatic], [normocephalic], [symmetric] Eyes: [EOMI], [no lid lag], [anicteric sclera] Mouth: [no lip lesion], [mucus membranes moist] Cardiovascular: [S1S2 reg], [holosystolic murmur], [positive DP pulse bilater al], Lungs: [Decreased breath sounds bilateral], [no rhonchi, no rales] , [no accessory muscle use] Abdominal: [soft], [ nontender to palpation], [no guarding], [no appreciable organomegaly] Ext: [no gross muscle atrophy], [no edema], [no contractures], [left hip lateral dressing clean dry and intact] Neuro: [no focal neuro deficits] Psych: [Alert], [oriented], [appropriate affect] - Labs CBC & Chem 7: 03/21/19 06:21 03/20/19 08:30 Labs: Abnormal Lab Results - Last 24 Hours (Table) 03/21/19 Range/Units 06:21 WBC 13.9 H (3.8-10.6) k/uL RBC 3.30 L (3.80-5.40) m/uL Hgb 9.8 L (11.4-16.0) gm/dL Hct 30.6 L (34.0-46.0) % Neutrophils # 11.2 H (1.3-7.7) k/uL Assessment and Plan Assessment: Acute impacted subcapital fracture of the left femur secondary to fall status post left total hip arthroplasty POD 1 Murmur Leukocytosis Anemia likely due to acute blood loss Chronic hypoxic respiratory failure due to COPD on 3 L home O2 Hypertension Dyslipidemia As seen on pelvic x-ray. POD 1 left total hip arthroplasty. Plans: Management as per orthopedic surgery. PT and OT on board. As seen on echocardiogram. Plans: Continue to monitor. Follow cardiology consultation. Leukocytosis of 13.9. Likely reactive. No signs of infection. Patient afebrile. Plans: Continue to monitor. Hemoglobin 9.8. Likely due to acute blood loss from surgery. Plans: Repeat CBC tomorrow morning. Transfuse if hemoglobin less than 7. Chest x-ray negative. Plans: Patient is at baseline 3 L home O2. BP 177/80. Plans: Continue losartan and metoprolol. Monitor vitals, adjust medications as necessary. Plans: Continue Lipitor. [POD 1 left total hip arthroplasty. Continue working with PT. Orthopedic surgery on board. Likely DC in 1-2 days.]
[2019-03-21] MEDS: METOPROLOL TARTRATE 12.5 MG TAB PO SCH ×2 (12:29→20:39)
--- NOTE | 2019-03-21 15:18 | P.PN ---
Subjective Progress Note Date: 03/21/19 Principal diagnosis: Status post direct anterior left total hip arthroplasty Patient evaluated at bedside, she is resting comfortably. Her pain is controlled. She is ambulating the halls with therapy today. She is utilizing her walker. She denies any chest pain or shortness of breath at this time. Objective - Vital Signs Vital signs: Vital Signs Temp 97.5 F L 03/21/19 14:32 Pulse 91 03/21/19 14:32 Resp 16 03/21/19 14:32 BP 148/82 03/21/19 14:32 Pulse Ox 95 03/21/19 14:32 Intake & Output 03/20/19 03/21/19 03/21/19 18:59 06:59 18:59 Intake Total 1250 Output Total 540 2600 Balance 710 -2600 Intake: IV 1250 Output: Urine 440 2600 Uretheral (Best) 240 500 Estimated Blood Loss 100 Other: Voiding Method Indwelling Catheter Indwelling Catheter Bedside Commode # Voids 2 - Exam Left lower extremity: Incision is clean, dry, and intact. The [exofin fusion tape] is in good condition. [There is minimal soft tissue swelling and ecchymosis surrounding the medial and lateral aspects of the incision.] Calf is soft, no tenderness with palpation. Plantar flexion, dorsiflexion, EHL, FHL are intact. Sensory exam to light touch throughout the extremity is intact, [dorsal pedis pulses 2+.] - Labs CBC & Chem 7: 03/21/19 06:21 03/20/19 08:30 Labs: Abnormal Lab Results - Last 24 Hours (Table) 03/21/19 Range/Units 06:21 WBC 13.9 H (3.8-10.6) k/uL RBC 3.30 L (3.80-5.40) m/uL Hgb 9.8 L (11.4-16.0) gm/dL Hct 30.6 L (34.0-46.0) % Neutrophils # 11.2 H (1.3-7.7) k/uL Assessment and Plan Plan: Assessment: Postoperative day #1 status post direct anterior left total hip arthroplasty Plan: Pain control, continue oral medication GI and DVT prophylaxis, continue current medication Continue work with physical therapy Medical recommendations Anticipate discharge to rehab on Saturday Time with Patient: Less than 30
--- NOTE | 2019-03-21 15:54 | P.PN ---
Subjective Progress Note Date: 03/21/19 This is a pleasant 68-year-old female past medical history significant for COPD, hypertension, dyslipidemia and chronic nicotine dependence. She denies prior history of coronary artery disease, diabetes mellitus or CVA. She does not follow with a lens matcher for any reason. We have asked to see her in consultation secondary to preoperative evaluation. She states she was warming up a piece of pizza on her microwave when she lost her balance and fell. She denies feeling dizzy, lightheaded, chest pain, short of breath or palpitations. She denies loss of consciousness. X-ray reveals an acute impacted subcapital left femur fracture. She is scheduled to undergo orthopedic surgery tomorrow. She is seen and examined resting comfortably lying flat in bed in no acute distress. She denies symptoms of chest pain, dizziness, shortness of breath or palpitations. DIAGNOSTICS EKG reveals sinus mechanism heart rate of 99. Chest xray negative for an acute cardiopulmonary process. Laboratory reviewed, CBC 14.8, hemoglobin 12.2, platelets 215, sodium 138, potassium 3.9, creatinine 0.83. Current cardiac medications include losartan 100 mg daily and simvastatin 20 mg daily. 03/21: Yesterday, patient underwent left total hip arthroplasty, anterior approach. Patient is seen today in follow-up and is currently denying any chest pain or shortness of breath. She denies having any palpitations. She has been eating adequately. No nausea vomiting. Blood pressure 148/82, heart rate 91- 104, pulse ox 95% on room air. Echocardiogram revealed EF of 60-65%, mild aortic stenosis, mild to moderate mitral regurgitation, mild tricuspid regurgitation. PHYSICAL EXAMINATION CONSTITUTIONAL: No apparent distress. Patient is resting in bed and appears to be comfortable. HEENT: Head is normocephalic. Pupils are equal, round. Sclerae anicteric. Mucous membranes of the mouth are moist. No JVD. No carotid bruit. CHEST EXAMINATION: Scattered rhonchi and expiratory wheeze. No rales. No chest wall tenderness is noted on palpation or with deep breathing. HEART EXAMINATION: Regular rate and rhythm. S1, S2 heard. Systolic ejection murmur at the left sternal border, no gallops or rub. ABDOMEN: Soft, nontender. Positive bowel sounds. EXTREMITIES: 2+ peripheral pulses, no lower extremity edema and no calf tenderness. NEUROLOGIC EXAMINATION: Patient is awake, alert and oriented x3. ASSESSMENT Mechanical fall with history of frequent fall over the last few months. Left impacted femur fracture status post total hip arthroplasty Sinus tachycardia, likely from pain Hypertension Dyslipidemia COPD Chronic nicotine dependence Valvular heart disease with mild aortic stenosis, mild to moderate mitral regurgitation, mild tricuspid regurgitation PLAN Echocardiogram as above. Continue losartan at 100 mg daily for blood pressure control. Add Lopressor 12.5 mg twice daily for blood pressure control and mild tachycardia. Discontinue PRN anti-hypertensives. The patient will be followed on an as-needed basis. Please recontact for any concerns. Thank you kindly for this consultation. Nurse Practitioner note has been reviewed, I agree with a documented findings and plan of care. Patient was seen and examined. Objective - Vital Signs Vital signs: Vital Signs Temp 98.2 F 03/21/19 07:00 Pulse 104 H 03/21/19 07:45 Resp 16 03/21/19 07:00 BP 177/80 03/21/19 07:00 Pulse Ox 94 L 03/21/19 07:00 Intake & Output 03/20/19 03/21/19 03/21/19 18:59 06:59 18:59 Intake Total 1250 Output Total 540 2600 Balance 710 -2600 Intake: IV 1250 Output: Urine 440 2600 Uretheral (Best) 240 500 Estimated Blood Loss 100 Other: Voiding Method Indwelling Catheter Indwelling Catheter - Labs CBC & Chem 7: 03/21/19 06:21 03/20/19 08:30 Labs: Abnormal Lab Results - Last 24 Hours (Table) 03/21/19 Range/Units 06:21 WBC 13.9 H (3.8-10.6) k/uL RBC 3.30 L (3.80-5.40) m/uL Hgb 9.8 L (11.4-16.0) gm/dL Hct 30.6 L (34.0-46.0) % Neutrophils # 11.2 H (1.3-7.7) k/uL
[2019-03-21] MEDS: SENNOSIDES-DOCUSATE SODIUM 1 EACH TAB PO SCH (20:39)
[2019-03-21] MEDS: ATORVASTATIN 10 MG TAB PO SCH (20:40)
[2019-03-21] MEDS: HYDROmorphone 0.5 MG/0.5 ML SYRINGE IVP PRN (20:44)
[2019-03-21] MEDS: MELATONIN 5 MG TABLET PO SCH (21:44)
[2019-03-22] MEDS: SODIUM CHLORIDE 0.9% 1,000 ML IV SCH ×3 (03:14→19:39)
[2019-03-22] MEDS: HYDROmorphone 0.5 MG/0.5 ML SYRINGE IVP PRN (03:57)
[2019-03-22] MEDS: ENOXAPARIN 40 MG/0.4 ML SYRINGE SQ SCH (03:57)
[2019-03-22] MEDS: LEVOTHYROXINE 50 MCG TAB PO SCH (05:38)
[2019-03-22] MEDS: IPRATROPIUM-ALBUTEROL 3 ML NEB INHALATION SCH ×4 (07:41→19:07)
[2019-03-22] MEDS: METOPROLOL TARTRATE 12.5 MG TAB PO SCH ×2 (07:43→19:46)
[2019-03-22] MEDS: LOSARTAN 50 MG TAB PO SCH (07:43)
[2019-03-22] MEDS: FAMOTIDINE 20 MG TAB PO SCH (07:43)
[2019-03-22] MEDS: HYDROcodone/APAP 5-325MG 1 EACH TAB PO PRN (07:43)
[2019-03-22 08:57] LABS: Basophils # (A) 0.1 k/uL (0-0.2); Basophils % (A) 1 %; Eosinophils # (A) 0.4 k/uL (0-0.7); Eosinophils % (A) 3 %; HCT 30.3 % (34.0-46.0); HGB 9.7 gm/dL (11.4-16.0); Lymphocytes # (A) 2.4 k/uL (1.0-4.8); Lymphocytes % (A) 19 %; MCH 29.5 pg (25.0-35.0); MCHC 31.9 g/dL (31.0-37.0); MCV 92.4 fL (80.0-100.0); Mean Platelet Volume 8.1; Monocytes % (A) 7 %; Neutrophils % (A) 69 %; Platelet Count 186 k/uL (150-450); RBC 3.27 m/uL (3.80-5.40); RDW 13.3 % (11.5-15.5); WBC 13.1 k/uL (3.8-10.6)
--- NOTE | 2019-03-22 10:54 | P.PN ---
Subjective Progress Note Date: 03/22/19 Principal diagnosis: Left hip pain Patient was seen and examined. No acute events overnight. Patient reports well-controlled pain with current medication. Patient states that she is not moving she is in no pain. She underwent direct anterior left total hip arthroplasty POD 2. Patient denies any chest pain, shortness of breath or palpitations. No nausea or vomiting. No fever or chills. Patient has been urinating since her surgery. She has not had a bowel movement since surgery but is passing gas. Objective - Vital Signs Vital signs: Vital Signs Temp 98.1 F 03/22/19 07:00 Pulse 88 03/22/19 07:55 Resp 12 03/22/19 07:45 BP 162/87 03/22/19 07:00 Pulse Ox 98 03/22/19 07:43 Intake & Output 03/21/19 03/22/19 03/22/19 18:59 06:59 18:59 Intake Total 125 240 Output Total 350 Balance 125 -110 Intake: Oral 125 240 Output: Urine 350 Other: Voiding Method Bedside Commode Bedside Commode Bedside Commode # Voids 2 - Exam General: [non toxic], [no distress], [appears at stated age] Derm: [warm], [dry] Head: [atraumatic], [normocephalic], [symmetric] Eyes: [EOMI], [no lid lag], [anicteric sclera] Mouth: [no lip lesion], [mucus membranes moist] Cardiovascular: [S1S2 reg], [holosystolic murmur], [positive DP pulse bilateral], Lungs: [Decreased breath sounds bilateral], [no rhonchi, no rales] , [no accessory muscle use] Abdominal: [soft], [ nontender to palpation], [no guarding], [no appreciable organomegaly] Ext: [no gross muscle atrophy], [no edema], [no contractures], [left hip lateral dressing clean dry and intact] Neuro: [no focal neuro deficits] Psych: [Alert], [oriented], [appropriate affect] - Labs CBC & Chem 7: 03/22/19 08:33 03/20/19 08:30 Labs: Abnormal Lab Results - Last 24 Hours (Table) 03/22/19 Range/Units 08:33 WBC 13.1 H (3.8-10.6) k/uL RBC 3.27 L (3.80-5.40) m/uL Hgb 9.7 L (11.4-16.0) gm/dL Hct 30.3 L (34.0-46.0) % Neutrophils # 9.0 H (1.3-7.7) k/uL Assessment and Plan Assessment: Acute impacted subcapital fracture of the left femur secondary to fall status post left total hip arthroplasty POD 2 Murmur Leukocytosis Anemia likely due to acute blood loss Chronic hypoxic respiratory failure due to COPD on 3 L home O2 Hypertension Dyslipidemia As seen on pelvic x-ray. POD 2 left total hip arthroplasty. Plans: Management as per orthopedic surgery. PT and OT on board. As seen on echocardiogram. Plans: Continue to monitor. Follow cardiology consultation. Leukocytosis of 13.1. Likely reactive. No signs of infection. Patient afebrile. Plans: Continue to monitor. Hemoglobin 9.7. Likely due to acute blood loss from surgery. Plans: Repeat CBC tomorrow morning. Transfuse if hemoglobin less than 7. Chest x-ray negative. Plans: Patient is at baseline 3 L home O2. BP 162/87. Plans: Continue losartan and metoprolol. Monitor vitals, adjust medications as necessary. Plans: Continue Lipitor. [POD 2 left total hip arthroplasty. Continue working with PT. Orthopedic surgery on board. Patient elected go home with PT rather than subacute rehab. Social work on board. Likely DC in 1-2 days.]
--- NOTE | 2019-03-22 16:27 | P.PN ---
Subjective Progress Note Date: 03/22/19 Principal diagnosis: Status post direct anterior left total hip arthroplasty Patient evaluated at bedside, she is resting comfortably. Her pain is controlled. Nursing staff did notice some confusion today, she has not taken pain medication since this morning. She denies any chest pain or shortness of breath at this time. Objective - Vital Signs Vital signs: Vital Signs Temp 98.4 F 03/22/19 15:35 Pulse 102 H 03/22/19 15:35 Resp 16 03/22/19 15:35 BP 117/82 03/22/19 15:35 Pulse Ox 95 03/22/19 15:35 Intake & Output 03/21/19 03/22/19 03/22/19 18:59 06:59 18:59 Intake Total 125 240 150 Output Total 350 Balance 125 -110 150 Intake: Oral 125 240 150 Output: Urine 350 Other: Voiding Method Bedside Commode Bedside Commode Bedside Commode # Voids 2 2 - Exam Left lower extremity: Incision is clean, dry, and intact. The [exofin fusion tape] is in good condition. [There is minimal soft tissue swelling and ecchymosis surrounding the medial and lateral aspects of the incision.] Calf is soft, no tenderness with palpation. Plantar flexion, dorsiflexion, EHL, FHL are intact. Sensory exam to light touch throughout the extremity is intact, [dorsal pedis pulses 2+.] - Labs CBC & Chem 7: 03/22/19 08:33 03/20/19 08:30 Labs: Abnormal Lab Results - Last 24 Hours (Table) 03/22/19 Range/Units 08:33 WBC 13.1 H (3.8-10.6) k/uL RBC 3.27 L (3.80-5.40) m/uL Hgb 9.7 L (11.4-16.0) gm/dL Hct 30.3 L (34.0-46.0) % Neutrophils # 9.0 H (1.3-7.7) k/uL Assessment and Plan Plan: Assessment: Postoperative day #2 status post direct anterior left total hip arthroplasty Plan: Pain control, tylenol as needed, try to avoid narcotics GI and DVT prophylaxis, continue current medication Continue work with physical therapy Medical recommendations Anticipate discharge tomorrow Time with Patient: Less than 30
[2019-03-22] MEDS: LACTATED RINGERS 1,000 ML IV SCH ×3 (19:01→19:47)
[2019-03-22] MEDS: ATORVASTATIN 10 MG TAB PO SCH (19:46)
[2019-03-22] MEDS: SENNOSIDES-DOCUSATE SODIUM 1 EACH TAB PO SCH (19:46)
[2019-03-22] MEDS: MELATONIN 5 MG TABLET PO SCH (19:46)
[2019-03-23] MEDS: ENOXAPARIN 40 MG/0.4 ML SYRINGE SQ SCH (03:13)
[2019-03-23 04:38] VITALS: RESP 16
[2019-03-23] MEDS: LEVOTHYROXINE 50 MCG TAB PO SCH (05:21)
[2019-03-23] MEDS: SODIUM CHLORIDE 0.9% 1,000 ML IV SCH (05:22)
[2019-03-23 07:50] VITALS: BP 175/93; TEMP 97.5
[2019-03-23] MEDS: METOPROLOL TARTRATE 12.5 MG TAB PO SCH (08:06)
[2019-03-23] MEDS: FAMOTIDINE 20 MG TAB PO SCH (08:06)
[2019-03-23] MEDS: LOSARTAN 50 MG TAB PO SCH (08:06)
[2019-03-23] MEDS: IPRATROPIUM-ALBUTEROL 3 ML NEB INHALATION SCH ×3 (09:27→15:41)
[2019-03-23 09:30] LABS: Basophils # (A) 0.1 k/uL (0-0.2); Basophils % (A) 1 %; Eosinophils # (A) 0.5 k/uL (0-0.7); Eosinophils % (A) 4 %; HCT 28.3 % (34.0-46.0); HGB 9.1 gm/dL (11.4-16.0); Lymphocytes % (A) 28 %; MCH 30.2 pg (25.0-35.0); MCHC 32.1 g/dL (31.0-37.0); MCV 94.2 fL (80.0-100.0); Mean Platelet Volume 8.8; Monocytes # (A) 0.8 k/uL (0-1.0); Monocytes % (A) 7 %; Neutrophils # (A) 6.4 k/uL (1.3-7.7); Neutrophils % (A) 58 %; Platelet Count 199 k/uL (150-450); RDW 13.3 % (11.5-15.5); WBC 11.1 k/uL (3.8-10.6)
--- NOTE | 2019-03-23 10:20 | CDI ---
Documentation Clarification Form Date: 03/23/2019 09:58:33 AM From: Deena Medina Admit Date: 03/19/2019 03:43:00 AM Patient Name: Virgen Ambrose Visit Number: [id number] Discharge Date: ATTENTION: The Clinical Documentation Specialists (CDI) and [facility] Coding Staff appreciate your assistance in clarifying documentation. Please respond to the clarification below the line at the bottom and electronically sign. The CDI & [facility] Coding staff will review the response and follow-up if needed. Please note: Queries are made part of the Legal Health Record. If you have any questions, please contact the author of this message via ITS. Dr. Danial Butler Hemoglobin 9.7 Likely due to acute blood loss from surgery. 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 Procedure performed: Direct anterior left total hip arthroplasty History/Risk Factors: 68-year-old female presented to the ED after a fall with left hip pain. Medical History: HTN, COPD, Hyperlipidemia Clinical Indicators: on admission 03/19 Hgb 12.2, 03/20 Hgb 11.2, 03/21 Hgb 9.8; 03/22 Hgb 9.7; 03/23 Hgb 9.1 Treatment: Monitoring CBC daily In order to accurately reflect this patients severity of illness, please clarify if the post-operative diagnosis of acute blood loss is: * An expected post-surgical condition (Last Revision: June 2018) MTDD
--- NOTE | 2019-03-23 12:35 | P.PN ---
Subjective Progress Note Date: 03/23/19 Principal diagnosis: Status post direct anterior left total hip arthroplasty Patient evaluated at bedside, she is resting comfortably. Her pain is controlled. She denies any chest pain or shortness of breath at this time. Objective - Vital Signs Vital signs: Vital Signs Temp 97.5 F L 03/23/19 07:00 Pulse 92 03/23/19 09:40 Resp 16 03/23/19 07:00 BP 175/93 03/23/19 07:00 Pulse Ox 98 03/23/19 09:29 Intake & Output 03/22/19 03/23/19 03/23/19 18:59 06:59 18:59 Intake Total 275 150 Balance 275 150 Weight 60.5 kg Intake: Oral 275 150 Other: Voiding Method Bedside Commode Bedside Commode # Voids 2 2 - Exam Left lower extremity: Incision is clean, dry, and intact. The exofin fusion tape is in good condition. There is minimal soft tissue swelling and ecchymosis surrounding the medial and lateral aspects of the incision. Calf is soft, no tenderness with palpation. Plantar flexion, dorsiflexion, EHL, FHL are intact. Sensory exam to light touch throughout the extremity is intact, dorsal pedis pulses 2+. - Labs CBC & Chem 7: 03/23/19 06:04 03/20/19 08:30 Labs: Abnormal Lab Results - Last 24 Hours (Table) 03/23/19 Range/Units 06:04 WBC 11.1 H (3.8-10.6) k/uL RBC 3.00 L (3.80-5.40) m/uL Hgb 9.1 L (11.4-16.0) gm/dL Hct 28.3 L (34.0-46.0) % Assessment and Plan Plan: Assessment: Postoperative day #3 status post direct anterior left total hip arthroplasty Acute blood loss anemia, expected surgical outcome Plan: Pain control, Tylenol for home Hemoglobin is remained stable GI and DVT prophylaxis, aspirin 81 mg twice a day Physical therapy and nursing after discharge Medical recommendations Discharge home today Time with Patient: Less than 30
--- NOTE | 2019-03-23 12:41 | P.DS ---
Providers Date of admission: 03/19/19 03:43 Expected date of discharge: 03/23/19 Attending physician: Tigre Messer Consults: 03/19/19 03:33 Consult Physician Stat Consulting Provider: Phoebe Maki Consult Reason/Comments: L hip fracture, medical clearance, COPD on home 02 Do you want consulting provider notified?: Yes 03/19/19 07:04 Consult Physician Urgent Consulting Provider: Tao Hawk Consult Reason/Comments: surgery Do you want consulting provider notified?: Yes Primary care physician: Emmie Zambrano DO Hospital Course: Date of admission: 03/19/2019 Date of discharge: 03/23/2019 Admission diagnosis: Displaced left femoral neck fracture Discharge diagnosis: Status post direct anterior left total hip arthroplasty Attending physician: Dr. Butler Surgical procedures: Direct anterior left total hip arthroplasty Brief history: Patient is a 68-year-old female with a history of a fall that occurred at her home on 03/19/2019. Patient was brought to [facility], was determined that she had a displaced left femoral neck fracture. She was admitted under orthopedic care with plan for surgical intervention. She underwent surgery on 03/20/2019. Hospital course: Details of patient's surgery can be found in operative report. Patient tolerated the procedure well and was subsequently transported to orthopedic floor. Patient's orthopeidc and medical care was provided daily. Patient had daily laboratory tests performed for evaluation of overall blood counts. Patient had daily physical therapy to include strengthening range of m otion as well as education with walker ambulation. Patient was treated with Lovenox for their postoperative DVT prophylaxis during their inpatient stay. Patient was noted to have a relatively uneventful postoperative course. Patient reported satisfactory pain control with oral pain medications by postoperative day 0. Patient showed satisfactory progress with physical therapy. Patient moved steadily through the program and had no difficulty meeting the goals by postoperative day 3. Given patient's otherwise satisfactory course and having met physical therapy goals, plan is to discharge patient home on postoperative day 3. Discharge condition/disposition: Patient will be discharged home in stable condition. Discharge medications: Instructions are given on resumption of patient's normal daily medications per primary care recommendation, in addition patient will be prescribed Tylenol 500 mg, aspirin 81 mg. Discharge instructions: 1. Wound care and infection precautions, keep incision dry and covered while showering, no lotions, creams, moisturizers. No soaking, tubs, pools, hottubs. Do not scrub over the incision. 2. Weight-bear as tolerated with walker / cane until follow-up. 3. Ice and elevate when necessary. Do not exceed 20 minutes per hour with ice pack. 4. Utilize compression sleeve until seen at first follow up appointment. 5. Visiting nursing care. 6. Home physical therapy. 7. Pain meds and anticoagulants per prescription. 8. Pain medication has potential to cause constipation. Increase oral fluid and fiber intake. Contact primary care provider if you have not had a bowel movement within 48 hours after discharge 9. No anti-inflammatory medication until discussed at first post operative visit, this including Motrin, Aleve, Mobic, Diclofenac. 10. Follow up in office at 2 weeks postop with Jose M Garcia PA-C 11. Follow up with your primary care doctor 7-10 days after discharge. 12. Contact [facility] with any questions, . Procedures: Direct anterior left total hip arthroplasty Patient Condition at Discharge: Stable Plan - Discharge Summary Discharge Rx Participant: No New Discharge Prescriptions: New Aspirin [Adult Low Dose Aspirin EC] 81 mg PO BID #60 tablet. Acetaminophen Tab [Tylenol Tab] 500 mg PO Q6H PRN #60 tablet PRN Reason: Pain No Action Meloxicam [Mobic] 7.5 mg PO DAILY Venlafaxine HCl ER [Effexor Xr] 150 mg PO DAILY Simvastatin [Zocor] 20 mg PO DAILY Losartan Potassium 100 mg PO DAILY Levothyroxine Sodium [Synthroid] 50 mcg PO DAILY buPROPion SR [Wellbutrin Sr] 150 mg PO BID Fluticasone/Vilanterol [Breo Ellipta 100-25 Mcg Inhaler] 1 puff INHALATION DAILY Discharge Medication List Fluticasone/Vilanterol [Breo Ellipta 100-25 Mcg Inhaler] 1 puff INHALATION DAILY 03/19/19 [History] Levothyroxine Sodium [Synthroid] 50 mcg PO DAILY 03/19/19 [History] Losartan Potassium 100 mg PO DAILY 03/19/19 [History] Meloxicam [Mobic] 7.5 mg PO DAILY 03/19/19 [History] Simvastatin [Zocor] 20 mg PO DAILY 03/19/19 [History] Venlafaxine HCl ER [Effexor Xr] 150 mg PO DAILY 03/19/19 [History] buPROPion SR [Wellbutrin Sr] 150 mg PO BID 03/19/19 [History] Acetaminophen Tab [Tylenol Tab] 500 mg PO Q6H PRN #60 tablet 03/23/19 [Rx] Aspirin [Adult Low Dose Aspirin EC] 81 mg PO BID #60 tablet. 03/23/19 [Rx] Follow up Appointment(s)/Referral(s): [facility],Equipment [NON-STAFF] - [facility], [NON-STAFF] - Emmie Zambrano DO [Primary Care Provider] - 1-2 days Luis Garcia PAC [PHYSICIAN DOCTOR OF NATUROPATHIC MEDICINE] - 2 Weeks Activity/Diet/Wound Care/Special Instructions: Bedside commode and walker will be delivered by [facility]. Orthopedic Discharge Instructions: 1. Wound care and infection precautions, keep incision dry and covered while showering, no lotions, creams, moisturizers. No soaking, pools, hot tubs. Do not scrub over incision. 2. Weight-bear as tolerated with walker / cane until follow-up. 3. Ice and elevate when necessary. Do not exceed 20 minutes per hour with ice pack. 4. Utilize compression sleeve until seen at first follow up appointment. 5. Pain meds and anticoagulants per prescription. 6. Pain medication has potential to cause constipation. Increase oral fluid and fiber intake. Contact primary care provider if you have not had a bowel movement within 48 hours after discharge. 7. No anti-inflammatory medication until discussed at first post operative visit, this including Motrin, Aleve, Mobic, Diclofenac. 8. Follow up in office at 2 weeks postop with Jose M Garcia PA-C 9. Follow up with your primary care doctor 7-10 days after discharge. 10. Contact [facility] with any questions, . Discharge Disposition: HOME WITH HOME HEALTH SERVICES
[2019-03-23 13:05] VITALS: PULSE 86
--- NOTE | 2019-03-23 15:02 | P.PN ---
Subjective Progress Note Date: 03/23/19 Patient was seen and examined at the bedside on 03/23. Patient was in good spirits and denied any active complaints. She denied only minimal pain at the left hip with movement. Denied chest pain, shortness of breath, nausea, vomiting, fever, or chills. Objective - Vital Signs Vital signs: Vital Signs Temp 97.5 F L 03/23/19 07:00 Pulse 86 03/23/19 13:04 Resp 16 03/23/19 07:00 BP 175/93 03/23/19 07:00 Pulse Ox 98 03/23/19 09:29 Intake & Output 03/22/19 03/23/19 03/23/19 18:59 06:59 18:59 Intake Total 275 150 Balance 275 150 Weight 60.5 kg Intake: Oral 275 150 Other: Voiding Method Bedside Commode Bedside Commode # Voids 2 2 - Exam General: Non-toxic, in no acute distress, appears stated age, normal weight HEENT: NC/AT, anicteric sclerae, moist conjunctiva, no lid-lag, PERRLA Cardiovascular: S1/S2 wnl, no murmurs, rubs, or gallops Lungs: Clear to auscultation, normal respiratory effort, no accessory muscle use Abdominal: Soft, non-tender, non-distended, no guarding, rebound, or rigidity Skin: Warm, dry Extremities: No edema or contractures, left hip postsurgical, with healing incision, no drainage or erythema noted Psychiatric: Alert and oriented to person, place and time, appropriate affect Neuro: CN II-XII grossly intact, no focal neuro deficits - Labs CBC & Chem 7: 03/23/19 06:04 03/20/19 08:30 Labs: Abnormal Lab Results - Last 24 Hours (Table) 03/23/19 Range/Units 06:04 WBC 11.1 H (3.8-10.6) k/uL RBC 3.00 L (3.80-5.40) m/uL Hgb 9.1 L (11.4-16.0) gm/dL Hct 28.3 L (34.0-46.0) % Assessment and Plan Plan: Traumatic left hip fracture status post total left hip arthroplasty -Management including pain control as per orthopedic surgery Valvular heart disease, mild aortic stenosis, moderate mitral regurgitation -Cardiology recommendations appreciated -Echo reviewed Hypertension -Continue with Losartan, Lopressor Leukocytosis -Likely due to acute stress -No signs of active infection at this time Chronic hypoxic respiratory failure -Continue with supplemental oxygen -Uses 3 L nasal cannula at home
== END 2019-03-23 16:30 | disposition home health service (06) | DRG 470 ==
LOC: EC 00:50 → 4SSUR 03:43
PROVIDERS: ADMIT Orthopaedic Surgery; ATTEND Orthopaedic Surgery
PROC: 0SRB04A Replacement of Left Hip Joint with Ceramic on Polyethylene Synthetic Substitute, Uncemented, Open Approach (ICD-10-PCS; principal; 2019-03-20 14:00)
DX: S72.012A Unspecified intracapsular fracture of left femur, initial encounter for closed fracture (principal); D62 Acute posthemorrhagic anemia; J96.11 Chronic respiratory failure with hypoxia; E03.9 Hypothyroidism, unspecified; E78.5 Hyperlipidemia, unspecified; E86.0 Dehydration; F17.200 Nicotine dependence, unspecified, uncomplicated; F32.9 Major depressive disorder, single episode, unspecified; I10 Essential (primary) hypertension; J44.9 Chronic obstructive pulmonary disease, unspecified; M16.12 Unilateral primary osteoarthritis, left hip; I08.3 Combined rheumatic disorders of mitral, aortic and tricuspid valves; W01.0XXA Fall on same level from slipping, tripping and stumbling without subsequent striking against object, initial encounter; Y93.01 Activity, walking, marching and hiking; Y92.009 Unspecified place in unspecified non-institutional (private) residence as the place of occurrence of the external cause; Z79.1 Long term (current) use of non-steroidal anti-inflammatories (NSAID); Z79.890 Hormone replacement therapy; Z79.899 Other long term (current) drug therapy; Z80.0 Family history of malignant neoplasm of digestive organs; Z99.81 Dependence on supplemental oxygen; Z88.1 Allergy status to other antibiotic agents; Z88.2 Allergy status to sulfonamides
CPT/HCPCS: 36415; 71045; 73501; 73502; 80048; 80053; 85025; 85027; 88305; 88311; 93306; 94640; 94760; 96361; 96365; 96375; 99285

== ENCOUNTER 2020-08-05 17:01 | Emergency (ER) | payer MEDICARE, OTHER ==
--- NOTE | 2020-08-05 18:48 | ED ---
Psych HPI - General Source: EMS Mode of arrival: EMS <Jose Doe - Last Filed: 08/05/20 22:34> <Landen Dickens - Last Filed: 08/06/20 06:29> - General Chief Complaint: Psychiatric Symptoms Stated Complaint: EPS eval Time Seen by Provider: 08/05/20 17:29 - History of Present Illness Initial Comments: 69-year-old female presents to emergency department for psychiatric evaluation. Patient was petitioned by her daughter who states the patient has been more physically combative than usual. Daughter states the patient has been threa tening her and her girlfriend of killing them. The reports the patient currently lives with her over the last several years and she has power of sports attorney over her. Patient reports that she has been arguing with her daughter and her girlfriend more than usual. She states that her daughter is not nice to her dog. She denies any homicidal, suicidal thoughts or ideations at this time. (Jose Doe) - Related Data Home Medications Medication Instructions Recorded Confirmed Levothyroxine Sodium [Synthroid] 50 mcg PO DAILY 03/19/19 08/05/20 Losartan Potassium 100 mg PO DAILY 03/19/19 08/05/20 Venlafaxine HCl ER [Effexor Xr] 150 mg PO DAILY 03/19/19 08/05/20 Simvastatin [Zocor] 10 mg PO Q48H 08/05/20 08/05/20 Vitamin C/Biotin [Hair, Skin and 1 tab PO DAILY 08/05/20 08/05/20 Nails] Allergies Allergy/AdvReac Type Severity Reaction Status Date / Time Sulfa (Sulfonamide Allergy Nausea & Verified 08/05/20 18:58 Antibiotics) Vomiting cephalexin [From Keflex] AdvReac HEADACHE Verified 08/05/20 18:58 Review of Systems ROS Other: All systems not noted in ROS Statement are negative. <Jose Doe - Last Filed: 08/05/20 22:34> ROS Other: All systems not noted in ROS Statement are negative. <Landen Dickens - Last Filed: 08/06/20 06:29> ROS Statement: Those systems with pertinent positive or pertinent negative responses have been documented in the HPI. Past Medical History Past Medical History: COPD, Hyperlipidemia, Hypertension Additional Past Medical History / Comment(s): O2 dependent History of Any Multi-Drug Resistant Organisms: None Reported Past Surgical History: No Surgical Hx Reported Additional Past Surgical History / Comment(s): Ectopic . Leg operation;no metal implants Past Anesthesia/Blood Transfusion Reactions: No Reported Reaction Additional Past Anesthesia/Blood Transfusion Reaction / Comment(s): Blood transfusion with ectopic Past Psychological History: Depression Smoking Status: Former smoker Past Alcohol Use History: None Reported Past Drug Use History: None Reported - Past Family History Father Family Medical History: No Reported History Mother Family Medical History: Cancer Additional Family Medical History / Comment(s): Colon cancer <Jose Doe - Last Filed: 08/05/20 22:34> General Exam Limitations: no limitations General appearance: alert, in no apparent distress Head exam: Present: atraumatic, normocephalic, normal inspection Eye exam: Present: normal appearance, PERRL, EOMI Pupils: Present: normal accommodation ENT exam: Present: normal exam, normal oropharynx, mucous membranes moist Respiratory exam: Present: normal lung sounds bilaterally. Absent: respiratory distress Cardiovascular Exam: Present: regular rate, normal rhythm, normal heart sounds Extremities exam: Present: normal inspection, full ROM Back exam: Present: normal inspection, full ROM Neurological exam: Present: alert, oriented X3 Psychiatric exam: Present: normal affect, normal mood Skin exam: Present: warm, dry, intact, normal color <Jose Doe - Last Filed: 08/05/20 22:34> Course Vital Signs 08/05/20 08/05/20 08/05/20 17:04 18:55 19:26 Temperature 98.6 F 98.2 F Pulse Rate 91 100 86 Respiratory 16 18 18 Rate Blood Pressure 176/106 118/95 179/98 O2 Sat by Pulse 96 97 96 Oximetry Medical Decision Making <Jose Doe - Last Filed: 08/05/20 22:34> - Medical Decision Making 69-year-old female presents to emergency department for psychiatric evaluation. Patient was petitioned by her daughter. Urine drug screen is unremarkable. EPS evaluation pending. At this time, patient care side of to (Jose Doe) - Lab Data Lab Results 08/05/20 Range/Units 18:38 Urine Opiates Screen Not Detected (NotDetected) Ur Oxycodone Screen Not Detected (NotDetected) Urine Methadone Screen Not Detected (NotDetected) Ur Propoxyphene Screen Not Detected (NotDetected) Ur Barbiturates Screen Not Detected (NotDetected) U Tricyclic Antidepress Not Detected (NotDetected) Ur Phencyclidine Scrn Not Detected (NotDetected) Ur Amphetamines Screen Not Detected (NotDetected) U Methamphetamines Scrn Not Detected (NotDetected) U Benzodiazepines Scrn Not Detected (NotDetected) Urine Cocaine Screen Not Detected (NotDetected) U Marijuana (THC) Screen Not Detected (NotDetected) Disposition <Jose Doe - Last Filed: 08/05/20 22:34> Is patient prescribed a controlled substance at d/c from ED?: No <Landen Dickens - Last Filed: 08/06/20 06:29> Clinical Impression: Adjustment reaction of adult life Disposition: HOME SELF-CARE Condition: Good Instructions (If sedation given, give patient instructions): Mood Disorders (ED) Referrals: None,Stated [Primary Care Provider] - 1-2 days
[2020-08-05 18:59] VITALS: RESP 18
[2020-08-05 19:04] LABS: Amphetamine Screen,Urine Not Detected (NotDetected); Barbiturate Screen,Urine Not Detected (NotDetected); Benzodiazepines Screen,Urine Not Detected (NotDetected); Cocaine Screen,Urine Not Detected (NotDetected); Methadone Screen, Urine Not Detected (NotDetected); Opiate Screen,Urine Not Detected (NotDetected); Oxycodone Screen, Urine Not Detected (NotDetected); Phencyclidine Screen,Urine Not Detected (NotDetected); Tricyclic Antidepressant,Urine Not Detected (NotDetected); Urn Cannabinoid Scrn Not Detected (NotDetected)
[2020-08-06] MEDS: ACETAMINOPHEN TAB 325 MG TAB PO STA (05:06)
[2020-08-06 07:24] VITALS: BP 179/90; PULSE 90; TEMP 98.4
== END 2020-08-06 07:22 | disposition home or self-care (01) ==
LOC: EC 17:01
DX: F43.20 Adjustment disorder, unspecified (principal); J44.9 Chronic obstructive pulmonary disease, unspecified; E78.5 Hyperlipidemia, unspecified; I10 Essential (primary) hypertension; F32.9 Major depressive disorder, single episode, unspecified; Z87.891 Personal history of nicotine dependence; Z99.81 Dependence on supplemental oxygen
CPT/HCPCS: 80306; 82075

== ENCOUNTER 2020-08-08 12:48 | Inpatient (IN) | payer MEDICARE, OTHER ==
[2020-08-12 05:04] VITALS: BP 146/84; PULSE 99; RESP 18; TEMP 97.4
== END 2020-08-12 17:40 | DRG 884 ==
LOC: SUPCPDRO 12:48 → EC 12:48 → 5NMEDONC 20:07 → OBSVTOIN 08-09 14:52 → 5NMEDONC 08-09 15:34
PROVIDERS: ADMIT Internal Medicine; ATTEND Internal Medicine
DX: F03.91 Unspecified dementia, unspecified severity, with behavioral disturbance (principal); N39.0 Urinary tract infection, site not specified; E03.9 Hypothyroidism, unspecified; E78.5 Hyperlipidemia, unspecified; I10 Essential (primary) hypertension; Z20.822 Contact with and (suspected) exposure to COVID-19; J44.9 Chronic obstructive pulmonary disease, unspecified; Z79.890 Hormone replacement therapy; Z87.440 Personal history of urinary (tract) infections; Z87.891 Personal history of nicotine dependence; Z99.81 Dependence on supplemental oxygen; F32.9 Major depressive disorder, single episode, unspecified; F41.9 Anxiety disorder, unspecified; Z79.899 Other long term (current) drug therapy
CPT/HCPCS: 36415; 70450; 71045; 80048; 80053; 80143; 80179; 80306; 80320; 81001; 82075; 84443; 85025; 87040; 87086; 87635; 96365; 99285